=== PATIENT | male | born 1995 | race Caucasian/White ===

== ENCOUNTER 2018-10-13 15:08 | Emergency (ER) | payer OTHER ==
--- NOTE | 2018-10-13 15:56 | EDM.PDOC ---
<Gifty Barahona - Last Filed: 10/13/18 16:09> ED HPI GENERAL MEDICAL PROBLEM - General Chief Complaint: ENT Problem Stated Complaint: TOOTH PAIN Time Seen by Provider: 10/13/18 15:35 Source of Information: Reports: Patient, RN Notes Reviewed History Limitations: Reports: No Limitations - History of Present Illness INITIAL COMMENTS - FREE TEXT/NARRATIVE: Kal is a 23 year old male who presents with right lower tooth pain that has worsened today. Patient states that about a year ago half his back right molar broke off (tooth #32) and he has had problems with cold and sensitivity since then. In the last week it has become unbearable. He denies any fever, chills, nightsweats, or any purulence or drainage from that site in his mouth. He has not seen a dentist in 8 years. Treatments SOLE SEWER HAND: Reports: Acetaminophen, NSAIDS Right Upper Tooth/Teeth Pain Score (Numeric/FACES): 9 - Related Data Allergies Allergy/AdvReac Type Severity Reaction Status Date / Time No Known Allergies Allergy Verified 10/13/18 15:22 Home Meds: Home Meds Penicillin V Potassium 500 mg PO Q6HR #40 tab 10/13/18 [Rx] Past Medical History - Past Health History Medical/Surgical History: Denies Medical/Surgical History Psychiatric History: Reports: Anxiety, Depression Social & Family History - Family History Family Medical History: Noncontributory - Tobacco Use Smoking Status *Q: Current Every Day Smoker Years of Tobacco use: 12 Packs/Tins Daily: 1 Used Tobacco, but Quit: No Second Hand Smoke Exposure: No - Caffeine Use Caffeine Use: Reports: Energy Drinks, Soda - Recreational Drug Use Recreational Drug Use: No ED ROS ENT - Review of Systems Review Of Systems: See Below Constitutional: Reports: No Symptoms HEENT: Reports: Dental Pain. Denies: Ear Pain, Throat Pain, Throat Swelling Respiratory: Reports: No Symptoms Cardiovascular: Reports: No Symptoms GI/Abdominal: Reports: No Symptoms Musculoskeletal: Reports: No Symptoms. Denies: Neck Pain Skin: Reports: No Symptoms Neurological: Reports: No Symptoms Psychiatric: Reports: No Symptoms ED EXAM, ENT - Physical Exam Exam Limited By: No Limitations General Appearance: Alert, WD/WN, No Apparent Distress, Thin Ears: Normal External Exam, Normal Canal, Hearing Grossly Normal, Normal TMs Nose: Normal Inspection, Normal Mucousa, No Blood Mouth/Throat: Normal Lips, Normal Oropharynx, Dental Pain, Dental Trauma (tooth 32 anterior half is absent). No: Bleeding, Dental Abcess, Gum Swelling, Peritonsillar Mass, Throat Pain, Throat Swelling, Tonsillar Exudates, Trismus, Uvular Deviation Head: Atraumatic, Normocephalic Neck: Normal Inspection, Supple, Non-Tender Respiratory/Chest: No Respiratory Distress Neurological: Alert, Oriented Psychiatric: Normal Affect, Normal Mood Skin: Warm, Dry, Intact Course - Vital Signs Last Recorded V/S: Last Vital Signs Temp 97.4 F 10/13/18 15:15 Pulse 54 L 10/13/18 15:15 Resp 14 10/13/18 15:15 BP 126/98 H 10/13/18 15:15 Pulse Ox 100 10/13/18 15:15 Departure - Departure Disposition: Home, Self-Care 01 Clinical Impression: Pain due to dental caries - Discharge Information Prescriptions: Penicillin V Potassium 500 mg PO Q6HR #40 tab Referrals: PCP,None [Primary Care Provider] - Forms: ED Department Discharge Additional Instructions: Take the full course of penicillin as prescribed. Utilize ibuprofen 600 mg every 6 hours for pain. May utilize a [id number] temporary filling to decrease exposure of the affected tooth to air which would decrease any symptoms. Do not chew on the affected side. Definitive treatment is seen a dentist for extraction of the tooth. Please call and make an appointment to have this done. Return back to the ED if you develop any increased swelling, worsening pain, fever, or change in voice. <Terence Sanford - Last Filed: 10/13/18 22:47> ED HPI GENERAL MEDICAL PROBLEM - History of Present Illness INITIAL COMMENTS - FREE TEXT/NARRATIVE: Agree with HPI. ED ROS ENT - Review of Systems Review Of Systems: See Below ED EXAM, ENT - Physical Exam Exam: See Below (Agree with physical findings.) Departure - Departure Time of Disposition: 15:56 Condition: Good
== END 2018-10-13 16:08 | disposition home or self-care (01) ==
LOC: JD.ED 15:08
DX: K02.9 Dental caries, unspecified (principal); S02.5XXA Fracture of tooth (traumatic), initial encounter for closed fracture; F17.210 Nicotine dependence, cigarettes, uncomplicated
CPT/HCPCS: 99282